=== PATIENT | female | born 1950 | race Caucasian/White ===

== ENCOUNTER → 2017-12-03 | Outpatient (CLI) | payer OTHER ==
[~2017-12-03] MED LIST: CLON0.5T3 PO; CYM30 PO; HYDR25TA4 PO; METO-217 PO; PANT1TAB3 PO; SIMV20TA2 PO
[2017-12-03 12:29] LABS: BASO % 0.3 %; BASO ABS # 0.02 K/uL (0-0.2); EOS % 2.5 %; EOS ABS # 0.17 K/uL (0-0.5); HEMATOCRIT 42.7 % (37-47); HEMOGLOBIN 14.7 g/dL (12.0-16.0); IG# 0.01 K/uL (0.00-0.02); LYMPH % 49.1 %; LYMPH ABS # 3.38 K/uL (1.2-3.4); MEAN CELL VOLUME 95.7 fL (80-100); MEAN CORPUSCULAR HGB CONC 34.4 g/dl (32-36); MEAN PLATELET VOLUME 10.2 fL (7.4-10.4); MONO % 8.1 %; MONO ABS # 0.56 K/uL (0.11-0.59); NEUT % 39.9 %; NEUT ABS # 2.75 K/uL (1.4-6.5); PLATELET COUNT 293 K/uL (130-400); RED CELL DISTRIBUTION WIDTH CV 12.1 % (11.5-14.5); RED CELL DISTRIBUTION WIDTH SD 42.2 fL (36.4-46.3); WHITE BLOOD COUNT 6.89 K/uL (4.8-10.8)
[2017-12-03 12:44] LABS: ALBUMIN 3.6 gm/dl (3.4-5.0); ALT/SGPT 77 U/L (12-78); AST/SGOT 51 U/L (15-37); BLOOD UREA NITROGEN 10 mg/dl (7-18); CALCIUM 8.9 mg/dl (8.5-10.1); CARBON DIOXIDE 31 mmol/L (21-32); CHOLESTEROL 225 mg/dl (0-200); CREATININE 0.89 mg/dl (0.60-1.20); GLUCOSE 110 mg/dl (70-99); POTASSIUM 4.5 mmol/L (3.5-5.1); SODIUM 139 mmol/L (136-145)
[2017-12-03 12:53] LABS: ALKALINE PHOSPHATASE 97 U/L (45-117); TOTAL PROTEIN 7.1 gm/dl (6.4-8.2)
== END | disposition home or self-care (01) ==
LOC: C.LAB1850 10:37
PROVIDERS: ATTEND Internal Medicine
DX: I10 Essential (primary) hypertension (principal); E78.5 Hyperlipidemia, unspecified; Z87.19 Personal history of other diseases of the digestive system; D41.9 Neoplasm of uncertain behavior of unspecified urinary organ; M79.7 Fibromyalgia; M25.50 Pain in unspecified joint; E55.9 Vitamin D deficiency, unspecified

== ENCOUNTER → 2017-12-28 | Outpatient (CLI) | payer OTHER ==
--- NOTE | 2017-12-28 15:04 | MAMMOGRAPHY REPORT ---
BILATERAL DIGITAL DIAGNOSTIC MAMMOGRAM TOMOSYNTHESIS WITH CAD: 12/28/2017 CLINICAL HISTORY: 67-year-old woman with a history of remote reduction mammoplasty and prior benign l eft breast biopsy presents late for follow-up in the left breast after biopsy. Due for annual bilate ral exam. TECHNIQUE: Bilateral breast tomosynthesis in addition to standard 2D mammography was performed. Curre nt study was also evaluated with a Computer Aided Detection (CAD) system. COMPARISON: Comparison is made to exams dated: 06/04/2016 ultrasound biopsy, 06/04/2016 mammogram, 05/23 ultrasound, 05/23/2016 mammogram, and 05/07/2016 mammogram - [facility]. BREAST COMPOSITION: The tissue of both breasts is almost entirely fatty. FINDINGS: There is a focal asymmetry in the 3:00 middle to posterior left breast, measuring 2.5 x 2.5 x 1.0 cm. A smaller 4 mm focal asymmetry is identified 2 cm anterior to the larger focal asymmetry. A ribbon shaped biopsy are clip is seen adjacent to the smaller 4 mm focal asymmetry. The focal as ymmetries have not significantly changed dating back to the 05/07/2016 mammograms and most likely rep resent benign glandular tissue however, no prior remote mammograms are available to assess long-term stability and therefore another 12 month follow-up diagnostic mammogram and possible ultrasound is re commended to ensure at least 2 years of stability to confirm benignity. There are a few benign-appearing calcifications in both breasts. No other suspicious mass, advanced solutions architect ural distortion, developing asymmetry or cluster of suspicious microcalcifications is seen. IMPRESSION: ACR-BI-RADS CATEGORY 3: PROBABLY BENIGN 1. Stable mammographic appearance of the left breast, including benign-appearing focal asymmetries i n the upper outer quadrant, and biopsy marker clip in place. A 12 month follow-up left diagnostic to mosynthesis mammogram and possible ultrasound is recommended to ensure at least 2 years of stability to confirm benignity. 2. Stable mammographic appearance of the right breast, without mammographic evidence of malignancy. Also recommend follow-up in 12 months. These results and recommendations were discussed with the patient at the time of the exam. Approximately 10% of breast cancers are not detected with mammography. A negative mammographic report should not delay biopsy if a clinically suggestive mass is present. Sindy Wood M.D. ay/:12/28/2017 12:11:19 Vice President Digital Strategist: Mirian JAFFE)(S[place]), [facility] letter sent: Follow Up Recommended 3 BI-RADS Code: ACR-BI-RADS Category 3: Probably Benign
== END | disposition home or self-care (01) ==
LOC: C.MAMM 10:46
PROVIDERS: ATTEND Physician Assistant Medical
DX: R92.8 Other abnormal and inconclusive findings on diagnostic imaging of breast (principal); N64.89 Other specified disorders of breast

== ENCOUNTER 2018-03-19 14:26 | Emergency (ER) | payer OTHER ==
[~2018-03-19] VITALS: Ht 160 cm; Wt 67.7 kg
[~2018-03-19 14:26] MED LIST changes: -CLON0.5T3 PO; -PANT1TAB3 PO
[2018-03-19 14:32] VITALS: TEMP 36.3; Ht 160 cm; Wt 67.7 kg
[2018-03-19] MEDS ORDERED: CLON0.5T3 PO (14:42)
[2018-03-19] MEDS ORDERED: PANT1TAB3 PO (14:42)
[2018-03-19] MEDS ORDERED: SODIUM CHLORIDE 0.9% 1000ML 1,000 ML IV STA (14:54)
[2018-03-19 15:11] VITALS: O2SAT 94
[2018-03-19 15:20] LABS: BASO % 0.2 %; BASO ABS # 0.02 K/uL (0-0.2); EOS % 1.2 %; EOS ABS # 0.13 K/uL (0-0.5); HEMATOCRIT 40.8 % (37-47); HEMOGLOBIN 14.7 g/dL (12.0-16.0); IG# 0.02 K/uL (0.00-0.02); LYMPH ABS # 3.34 K/uL (1.2-3.4); MEAN CELL VOLUME 92.7 fL (80-100); MEAN CORPUSCULAR HEMOGLOBIN 33.4 pg (25-34); MEAN PLATELET VOLUME 9.4 fL (7.4-10.4); MONO % 9.8 %; MONO ABS # 1.02 K/uL (0.11-0.59); NEUT % 56.6 %; NEUT ABS # 5.91 K/uL (1.4-6.5); PLATELET COUNT 289 K/uL (130-400); RED CELL DISTRIBUTION WIDTH CV 12.8 % (11.5-14.5); RED CELL DISTRIBUTION WIDTH SD 43.7 fL (36.4-46.3); WHITE BLOOD COUNT 10.44 K/uL (4.8-10.8)
--- NOTE | 2018-03-19 15:25 | DIAGNOSTIC IMAGING REPORT ---
CHEST ONE VIEW PORTABLE CLINICAL HISTORY: EVALUATE ALTERED MENTAL STATUS/WEAKNESS pain COMPARISON STUDY: 08/05/2015 FINDINGS: The bones soft tissues and hemidiaphragms are normal. The cardiomediastinal silhouette is normal. The lungs are clear. The pulmonary vasculature is normal. IMPRESSION: Negative chest. The above report was generated using voice recognition software. It may contain grammatical, syntax or spelling errors. Electronically signed by: Fernie Diaz M.D. 03/19/2018 3:24 PM Dictated Date/Time: 03/19/2018 3:24 PM
--- NOTE | 2018-03-19 15:37 | DIAGNOSTIC IMAGING REPORT ---
CT OF THE HEAD WITHOUT CONTRAST CLINICAL HISTORY: Altered mental status. Weakness. COMPARISON STUDY: Head CT August 06, 2015. CT DOSE: 537.48 mGy.cm TECHNIQUE: Helical axial images of the head were obtained without IV contrast. Automated exposure control was utilized for the study. A dose lowering technique was utilized adhering to the principles of ALARA. FINDINGS: No acute intracranial hemorrhage, midline shift or mass effect is present. Ventricular system is normal. The basilar cisterns are patent. There are no extra-axial collections. Yeboah-white differentiation is maintained. There are no findings to suggest acute dural sinus thrombosis or acute territorial infarct. There is venous gas within the left infratemporal fossa and temporal scalp. There is no calvarial fracture. Visualized portions of the sinuses and the mastoid air cells are clear. IMPRESSION: No acute intracranial findings. Electronically signed by: Joshua Graves M.D. 03/19/2018 3:36 PM Dictated Date/Time: 03/19/2018 3:33 PM
[2018-03-19 15:45] LABS: ALBUMIN 3.8 gm/dl (3.4-5.0); ALT/SGPT 47 U/L (12-78); AST/SGOT 32 U/L (15-37); BLOOD UREA NITROGEN 10 mg/dl (7-18); CALCIUM 8.6 mg/dl (8.5-10.1); CARBON DIOXIDE 27 mmol/L (21-32); CREATININE 0.85 mg/dl (0.60-1.20); GLUCOSE 91 mg/dl (70-99); POTASSIUM 3.5 mmol/L (3.5-5.1); SODIUM 138 mmol/L (136-145)
[2018-03-19] MEDS ORDERED: METOCLOPRAMIDE HCL INJ 5 MG/ML 2 ML VIAL IV STA (15:48)
[2018-03-19] MEDS ORDERED: DiphenhydrAMINE HCL 50 MG/ML VIAL IV STA (15:48)
[2018-03-19 15:55] LABS: ALKALINE PHOSPHATASE 90 U/L (45-117); TOTAL PROTEIN 7.3 gm/dl (6.4-8.2)
[2018-03-19] MEDS ORDERED: METO50TA8 PO (16:08)
[2018-03-19] MEDS ORDERED: ROSU20TA PO (16:08)
[2018-03-19] MEDS ORDERED: HYDR25TA4 PO (16:08)
[2018-03-19] MEDS ORDERED: OMEG10007 PO (16:08)
[2018-03-19] MEDS ORDERED: TRAZ50TA35 PO (16:08)
[2018-03-19] MEDS ORDERED: CYAN500T PO (16:08)
[2018-03-19] MEDS ORDERED: CHOL1TAB42 PO (16:08)
--- NOTE | 2018-03-19 17:36 | DIAGNOSTIC IMAGING REPORT ---
BRAIN WITHOUT CONTRAST HISTORY: Mental status change vertigo TECHNIQUE: Multiplanar multisequence MRI of the brain was performed without the use of contrast. COMPARISON STUDY: None. FINDINGS: There are no areas of restricted diffusion to suggest acute infarction. The midline structures are intact. The paranasal sinuses are clear. The mastoid air cells are clear. The ventricles and sulci are within normal limits for age. There is no mass, hematoma, midline shift. The major vascular flow-voids at the skull base are well maintained. IMPRESSION: No acute intracranial abnormality. Mild age-related atrophy and chronic small vessel change The above report was generated using voice recognition software. It may contain grammatical, syntax or spelling errors. Electronically signed by: Fernie Diaz M.D. 03/19/2018 5:34 PM Dictated Date/Time: 03/19/2018 5:32 PM
--- NOTE | 2018-03-19 17:56 | EMERGENCY ROOM VISIT NOTE ---
History Report prepared by Gayle: Maxwell Arellano Under the Supervision of: Dr. Scot Baird M.D. First contact with patient: 14:44 Chief Complaint: DIZZY Stated Complaint: PASSED OUT A WEEK AGO,DIZZINESS PERSISTING History of Present Illness The patient is a 67 year old female who presents to the Emergency Room with complaints of dizziness that she has been experiencing intermittently since last week when she had a syncopal episode. The patient states that she was in one of the upper floors of her apartment building when she started to feel "lightheaded." She got onto the elevator, and then does not remember selecting a button to go to her floor. The next thing she remembers is looking up at the lights. A man was there to help her up, but she was unable to get up on her own. The patient states that she then realized that she fell backwards and hit the back of her head on the handrail in the elevator. She notes that she was only out for a matter of minutes. Since this episode she has felt as though the room is spinning. Her symptoms are worsened by laying down at night, and changing positions while laying down. The patient notes that she has passed out before, but this was many years ago. She denies any recent coughs, fevers, nausea, vomiting, diarrhea, or urinary symptoms. Source of History: patient Onset: 1 week ago Position: head Quality: other (Dizziness) Timing: intermittent Modifying Factors (Worsening): other (Laying down at night, changing positions. ) Associated Symptoms: + LOC, No fevers, No cough, No nausea, No vomiting Review of Systems See HPI for pertinent positives and negatives. A total of ten systems were reviewed and were otherwise negative. Past Medical & Surgical Medical Problems: (1) Anxiety State Nos (2) Fibromyalgia (3) GERD (gastroesophageal reflux disease) (4) High cholesterol (5) Hyperlipidemia (6) Hypertension (7) Hypertension Nos Family History Diabetes mellitus FH: cancer FH: gallbladder disease FH: heart disease FH: lung disease Hypertension Social History Smoking Status: Current Some Day Smoker Alcohol Use: occasionally Drug Use: none Marital Status: in relationship Housing Status: lives alone Occupation Status: employed Current/Historical Medications Scheduled Cholecalciferol (Vitamin D), 5,000 UNITS PO DAILY Cyanocobalamin (Vitamin B-12), 500 MCG PO DAILY Fish Oil ([place]-3), 1 CAP PO BID Hydrochlorothiazide (Hctz), 25 MG PO DAILY Metoprolol Succ (Toprol Xl) (Toprol-Xl), 50 MG PO DAILY Pantoprazole (Protonix), 40 MG PO DAILY Rosuvastatin Calcium (Crestor), 20 MG PO DAILY Trazodone Hcl (Trazodone), 50 MG PO HS Scheduled PRN Clonazepam (Klonopin), 0.5 MG PO DAILY PRN for Anxiety Allergies Coded Allergies: Codeine (Verified Allergy, Unknown, makes her nervous, 08/05/15) Physical Exam Vital Signs Date Time Temp Pulse Resp B/P (MAP) Pulse Ox O2 Delivery O2 Flow Rate FiO2 03/19/18 18:17 67 16 105/63 96 03/19/18 17:34 66 16 98/62 96 Room Air 03/19/18 16:33 67 20 111/57 94 Room Air 03/19/18 16:09 65 03/19/18 15:39 65 15 106/69 94 Room Air 03/19/18 15:11 94 Room Air 03/19/18 15:11 68 20 116/64 68 115/71 73 101/68 03/19/18 14:32 36.3 68 18 131/77 93 Room Air Physical Exam GENERAL: Awake, alert, well appearing, no acute distress HEAD: Normocephalic, atraumatic. No chinchilla sign. No raccoon eyes. EYES: Normal conjunctiva. PERRL. EARS: External ears normal. Right TM normal. Left TM normal. NOSE: Atraumatic OROPHARYNX: Lips, tongue unremarkable. Dry mucous membranes. No erythema or exudate. NECK: Supple. No nuchal rigidity. FROM. No tracheal deviation or JVD. No posterior midline tenderness. No step offs noted. RESPIRATORY: CTA bilaterally CARDIAC: Regular rate, normal rhythm. ABDOMEN: Inspection reveals no abnormalities. Soft, non distended. No tenderness to palpation. No hernias. BACK: No midline step offs. Mild tenderness of the sacrum. PELVIS: Stable to rock. SKIN: Normal. LYMPH: No adenopathy. MUSCULOSKELETAL: Upper and lower extremities are atraumatic. NEURO: GCS 15. Normal sensorium. No sensory or motor deficits noted. normal cerebellar function with [id number], alternating palms. Medical Decision & Procedures ER Provider Diagnostic Interpretation: Radiology results as stated below per my review and radiologist interpretation: CHEST ONE VIEW PORTABLE CLINICAL HISTORY: EVALUATE ALTERED MENTAL STATUS/WEAKNESS pain COMPARISON STUDY: 08/05/2015 FINDINGS: The bones soft tissues and hemidiaphragms are normal. The cardiomediastinal silhouette is normal. The lungs are clear. The pulmonary vasculature is normal. IMPRESSION: Negative chest. The above report was generated using voice recognition software. It may contain grammatical, syntax or spelling errors. Electronically signed by: Fernie Diaz M.D. 03/19/2018 3:24 PM Dictated Date/Time: 03/19/2018 3:[address] OF THE HEAD WITHOUT CONTRAST CLINICAL HISTORY: Altered mental status. Weakness. COMPARISON STUDY: Head CT August 06, 2015. CT DOSE: 537.48 mGy.cm TECHNIQUE: Helical axial images of the head were obtained without IV contrast. Automated exposure control was utilized for the study. A dose lowering technique was utilized adhering to the principles of ALARA. FINDINGS: No acute intracranial hemorrhage, midline shift or mass effect is present. Ventricular system is normal. The basilar cisterns are patent. There are no extra-axial collections. Yeboah-white differentiation is maintained. There are no findings to suggest acute dural sinus thrombosis or acute territorial infarct. There is venous gas within the left infratemporal fossa and temporal scalp. There is no calvarial fracture. Visualized portions of the sinuses and the mastoid air cells are clear. IMPRESSION: No acute intracranial findings. Electronically signed by: Joshua Graves M.D. 03/19/2018 3:36 PM Dictated Date/Time: 03/19/2018 3:33 PM Laboratory Results 03/19/18 15:05 Red Blood Count 4.40, Mean Corpuscular Volume 92.7, Mean Corpuscular Hemoglobin 33.4, Mean Corpuscular Hemoglobin Concent 36.0, Mean Platelet Volume 9.4, Neutrophils (%) (Auto) 56.6, Lymphocytes (%) (Auto) 32.0, Monocytes (%) (Auto) 9.8, Eosinophils (%) (Auto) 1.2, Basophils (%) (Auto) 0.2, Neutrophils # (Auto) 5.91, Lymphocytes # (Auto) 3.34, Monocytes # (Auto) 1.02, Eosinophils # (Auto) 0.13, Basophils # (Auto) 0.02 03/19/18 15:05 Test 03/19/18 15:05 03/19/18 17:55 White Blood Count 10.44 K/uL (4.8-10.8) Red Blood Count 4.40 M/uL (4.2-5.4) Hemoglobin 14.7 g/dL (12.0-16.0) Hematocrit 40.8 % (37-47) Mean Corpuscular Volume 92.7 fL (80-100) Mean Corpuscular Hemoglobin 33.4 pg (25-34) Mean Corpuscular Hemoglobin Concent 36.0 g/dl (32-36) Platelet Count 289 K/uL (130-400) Mean Platelet Volume 9.4 fL (7.4-10.4) Neutrophils (%) (Auto) 56.6 % Lymphocytes (%) (Auto) 32.0 % Monocytes (%) (Auto) 9.8 % Eosinophils (%) (Auto) 1.2 % Basophils (%) (Auto) 0.2 % Neutrophils # (Auto) 5.91 K/uL (1.4-6.5) Lymphocytes # (Auto) 3.34 K/uL (1.2-3.4) Monocytes # (Auto) 1.02 K/uL (0.11-0.59) Eosinophils # (Auto) 0.13 K/uL (0-0.5) Basophils # (Auto) 0.02 K/uL (0-0.2) RDW Standard Deviation 43.7 fL (36.4-46.3) RDW Coefficient of Variation 12.8 % (11.5-14.5) Immature Granulocyte % (Auto) 0.2 % Immature Granulocyte # (Auto) 0.02 K/uL (0.00-0.02) Anion Gap 8.0 mmol/L (3-11) Est Creatinine Clear Calc Drug Dose 60.1 ml/min Estimated GFR () 82.8 Estimated GFR (Non- 71.4 BUN/Creatinine Ratio 11.5 (10-20) Calcium Level 8.6 mg/dl (8.5-10.1) Magnesium Level 2.1 mg/dl (1.8-2.4) Total Bilirubin 0.4 mg/dl (0.2-1) Direct Bilirubin 0.1 mg/dl (0-0.2) Aspartate Amino Transf (AST/SGOT) 32 U/L (15-37) Alanine Aminotransferase (ALT/SGPT) 47 U/L (12-78) Alkaline Phosphatase 90 U/L (45-117) Troponin I < 0.015 ng/ml (0-0.045) Total Protein 7.3 gm/dl (6.4-8.2) Albumin 3.8 gm/dl (3.4-5.0) Thyroid Stimulating Hormone (TSH) 1.910 uIu/ml (0.300-4.500) Urine Color DK YELLOW Urine Appearance CLOUDY (CLEAR) Urine pH 5.0 (4.5-7.5) Urine Specific [place] 1.028 (1.000-1.030) Urine Protein NEG (NEG) Urine Glucose (UA) NEG (NEG) Urine Ketones NEG (NEG) Urine Occult Blood NEG (NEG) Urine Nitrite NEG (NEG) Urine Bilirubin NEG (NEG) Urine Urobilinogen NEG (NEG) Urine Leukocyte Esterase NEG (NEG) Urine WBC (Auto) 0 /hpf (0-5) Urine RBC (Auto) 0-4 /hpf (0-4) Urine Hyaline Casts (Auto) 0 /lpf (0-5) Urine Epithelial Cells (Auto) 0-5 /lpf (0-5) Urine Bacteria (Auto) NEG (NEG) Urine Crystals CALCIUM OXALATE (NONE Laboratory results reviewed by me Medications Administered Medications (Trade) Dose Ordered Sig/Carlo Route Start Time Stop Time Status Last Admin Dose Admin Sodium Chloride 1,000 ml @ 999 mls/hr Q1H1M STAT IV 03/19/18 14:54 03/19/18 15:54 DC 03/19/18 15:16 999 MLS/HR Metoclopramide HCl (Reglan Inj) 10 mg NOW STAT IV 03/19/18 15:48 03/19/18 16:06 DC 03/19/18 16:32 10 MG Diphenhydramine HCl (Benadryl Inj) 25 mg NOW STAT IV 03/19/18 15:48 03/19/18 16:06 DC 03/19/18 16:32 25 MG ECG Per My Interpretation Indication: other (Dizzy, syncope last week) Rate (beats per minute): 72 Rhythm: sinus rhythm Findings: PAC, other (Normal axis, no JOVANNY/STD) ED Course 1458: The patient was evaluated in room B2. A complete history and physical exam was performed. Medical Decision I reviewed the patient's past medical history, medications, and the nursing notes as described above. Differential diagnosis: Etiologies such as vasovagal event, infection, hypoglycemia, electrolyte abnormalities, cardiac sources, intracerebral event, toxicologic, neurologic, as well as others were entertained. The patient is a 67 y/o woman who presents to the emergency department with persistent lightheadedness over the past week after having a syncopal episode per HPI. On arrival the patient is well-appearing in NAD, AFVSS. No signs of external trauma. Neuro intact including normal cerebellar function with finger- to-nose, alternating palms, [id number]. No nystagmus. EKG unremarkable. CXR negative. CT head negative. Labs unremarkable. MRI negative. Patient feeling improved after IVF, Reglan, Diphenhydramine. Ambulating with steady gait. Unclear etiology to patient sx. Possible mild dehydration. Patient advised to decrease her metoprolol dose to 25 daily given her HR in 60 and SBP 100s and reassess with her pcp. Findings and plan for follow-up reviewed with patient. Patient agreeable and d/c'd per discharge instructions. Medication Reconcilliation Current Medication List: was personally reviewed by me Blood Pressure Screening Patient's blood pressure: Normal blood pressure Impression Primary Impression: Syncope Scribe Attestation The scribe's documentation has been prepared under my direction and personally reviewed by me in its entirety. I confirm that the note above accurately reflects all work, treatment, procedures, and medical decision making performed by me. Departure Information Dispostion Home / Self-Care Referrals Fernando Allison M.D. (PCP) Patient Instructions ED Near Syncope [facility], My [facility], Syncope, Syncope Causes Additional Instructions Please follow up with your primary care physician on Thursday for re-evaluation and possible further testing such as a Holter monitor. The cause of your lightheadedness and syncope is unclear at this time. Otherwise, your exam, EKG, chest xray, lab results, CT scan and MRI of your brain did not show signs of an emergent condition at this time. Half your dose of metoprolol to 25mg daily until your see your doctor. Drink plenty of fluids to ensure hydration. Return to the emergency department for worsening symptoms as described in the accompanying instructions.
[2018-03-19 18:17] VITALS: BP 105/63; PULSE 67; O2SAT 96
== END 2018-03-19 18:15 | disposition home or self-care (01) ==
LOC: C.EDB 14:28
DX: R55 Syncope and collapse (principal); F41.9 Anxiety disorder, unspecified; M79.7 Fibromyalgia; K21.9 Gastro-esophageal reflux disease without esophagitis; E78.00 Pure hypercholesterolemia, unspecified; E78.5 Hyperlipidemia, unspecified; I10 Essential (primary) hypertension; F17.210 Nicotine dependence, cigarettes, uncomplicated; Z79.899 Other long term (current) drug therapy; Z88.5 Allergy status to narcotic agent